=== PATIENT | female | born 1980 | race Caucasian/White ===

== ENCOUNTER 2024-01-10 11:14 | Outpatient (REF) | payer MEDICAID, OTHER, SELFPAY ==
[2024-01-10 12:23] LABS: Hematocrit 40.4 % (37.0-47.0); Hemoglobin 13.2 g/dl (12.0-16.0)
[2024-01-10 12:43] LABS: Alanine Aminotransferase 18 U/L (0-31); Albumin Level 3.9 g/dL (3.5-5.0); Alkaline Phosphatase 90 U/L (39-117); Anion Gap 15 (12-20); Aspartate Amino Transferase 16 U/L (5-31); Bilirubin Total 0.4 mg/dL (0.0-1.0); Blood Urea Nitrogen 10 mg/dL (9-16); Carbon Dioxide 25 mmol/L (22-29); Chloride 107 mmol/L (96-108); Cholesterol 214 mg/dL (<200); Estimated Glomerular Filt Rate > 60; Glucose Random 89 mg/dL (60-115); HDL Cholesterol 40 mg/dL (>40); LDL Cholesterol Calculated 146 mg/dL (<100); Potassium 4.6 mmol/L (3.3-5.1); Sodium 142 mmol/L (135-145); Total Protein 7.2 g/dL (6.5-8.0); Triglycerides 144 mg/dL (<150)
[2024-01-10 12:47] LABS: Estimated Average Glucose 103 mg/dL; Hemoglobin A1c % 5.2 % (<6.0)
== END 2024-01-10 11:15 | disposition home or self-care (01) ==
LOC: HO.HHCL 11:14
PROVIDERS: Visit Provider Nurse Practitioner Primary Care
DX: Z00.00 Encounter for general adult medical examination without abnormal findings (principal); I10 Essential (primary) hypertension
CPT/HCPCS: 36415; 80053; 80061; 83036; 85014; 85018

== ENCOUNTER → 2024-01-17 13:59 | Outpatient (REF) | payer MEDICAID, OTHER, SELFPAY ==
--- NOTE | ~2024-01-17 | MM_ITS ---
EXAMINATION: MM SCREENING DIGITAL BREAST TOMOSYNTHESIS, BILATERAL CLINICAL INFORMATION: Screening. Asymptomatic. COMPARISON: Mammography: There are no prior mammograms for comparison. TECHNIQUE: Digital breast tomosynthesis is performed in both the craniocaudal and mediolateral oblique views along with computer-aided detection (CAD). Synthesized 2D images are generated from the tomosynthesis. FINDINGS: There are scattered areas of fibroglandular density (ACR BI-RADS breast composition Category b). There are no significant masses, abnormal calcifications, or other abnormalities. MM/MM tomosynthesis screening BI IMPRESSION: No mammographic evidence of malignancy. ASSESSMENT: BI-RADS BI-RADS 1 - Negative RECOMMENDATION: Routine annual mammography screening. 1 year F/U This examination should not preclude the clinical evaluation of a suspicious palpable abnormality. This patient's information was entered into a reminder system with a target due date for their next mammogram.
--- NOTE | 2024-01-17 14:40 | CA_ITS ---
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 The calculated ejection fraction is 63% by biplane method. - No obvious valvular pathology seen on this study. Findings Left Ventricle Normal left ventricular cavity size. There is normal left ventricular wall thickness. The left ventricular systolic function is normal. The calculated ejection fraction is 63% by biplane method. There is no evidence of regional wall motion abnormalities. Diastolic function is normal for age. Right Ventricle Normal right ventricular cavity size and systolic function. Atria Both atria are normal in size. Aortic Valve There is a normal trileaflet aortic valve. There is no aortic valve stenosis. There is no aortic valve regurgitation. Mitral Valve The mitral valve appears normal. There is trace mitral valve regurgitation. There is no mitral valve stenosis. Pulmonic Valve The pulmonic valve is likely normal. Tricuspid Valve There is trace tricuspid valve regurgitation. There is no evidence of pulmonary hypertension. Great Vessels The asc aorta is normal in size. Venous The inferior vena cava is normal in size and collapses greater than 50% with inspiration. Pericardium/Pleural There is no evidence of pericardial effusion. Prior Study Comparison No prior study available for comparison. Recommendations, Care & Conclusions No obvious valvular pathology seen on this study. Measurements 2D Linear Measurements IVSd: 0.71 0.6-0.9/0.6-1.0 cm LVIDd: 4.85 3.9-5.3/4.2-5.9 cm LVIDd Index: 2.44 2.4-3.2/2.2-3.1 cm/m2 LVIDs: 3.29 2.0-3.6 cm LVPWd: 0.78 0.7-1.1 cm LA Diam: 3.40 2.7-3.8/3.0-4.0 cm LAIDs Index: 1.71 1.5-2.3 cm/m2 LV Mass: 146.01 67-162/88-224 g LV Mass Index: 73.37 43-95/49-115 g/m2 LVOT Diam: 2.10 3.0+(-)1.3 cm 2D Systolic Function EF 4C: 64.00 >55% EF 2C: 62.60 >55% EF BiP: 62.60 >55% Mitral Valve MV Pk E: 0.83 MV PK A: 0.50 MV Decel Time: 170.00 E/A: 1.70 E'Lateral: 11.90 E'Medial: 9.46 E/E' Med: 8.70 E/E' Lat: 6.90 PHT: 50.00 MVA PHT: 4.40 Decel [place]: 4.87 Aortic Valve AoV Pk Blake: 1.14 AoV Pk Grad: 5.00 BRI: 2.82 LVOT LVOT Pk Blake: 1.02 LVOT Mn Blake: 0.63 LVOT VTI: 0.20 LVOT Pk Grad: 4.00 LVOT Mn Grad: 2.00 LVOT Diam: 2.10 LVOT Area: 3.46 Diastolic Function MV Pk E: 0.83 MV Pk A: 0.50 E/A: 1.70 E'Medial: 9.46 E/E' Med: 8.70 E' Laterial: 11.90 E/E' Lat: 6.90 Right Ventricle TAPSE (mm): 27.20 TVS' Blake: 13.80 Tricuspid Valve TR Pk Blake: 1.92 TR Pk Grad: 15.00 RA Press: 3.00 RVSP: 18.00 Great Vessels Aorta Sinus of Valsalva: 3.00 2.0-3.5 cm Ao Asc: 2.90 2.1-3.4 cm Ao Arch: 2.20 Ao Desc: 1.70 Pulmonary Veins Pulm Vein S/D 1.20 Pulmonary Valve PV Pk Blake: 0.86 Peak PV Grad: 3.00 Updated in Other Vendor System with Status of Final Kevin Rice MD electronically signed on 01/18/2024 4:19:46 PM with status of Final
== END ==
LOC: HO.CARD 13:59
PROVIDERS: Visit Provider Nurse Practitioner Primary Care
DX: Z12.31 Encounter for screening mammogram for malignant neoplasm of breast (principal); I42.8 Other cardiomyopathies
CPT/HCPCS: 77063; 77067; 93306

== ENCOUNTER → 2024-01-17 14:40 | Outpatient (BNV) | payer SELFPAY | PROVIDERS: Visit Provider Internal Medicine | DX: I42.8 Other cardiomyopathies (principal); U07.1 COVID-19 | CPT/HCPCS: 93306 ==

== ENCOUNTER → 2024-01-17 15:15 | Outpatient (BNV) | payer SELFPAY | PROVIDERS: Visit Provider Radiology Diagnostic Radiology | DX: Z12.31 Encounter for screening mammogram for malignant neoplasm of breast (principal) | CPT/HCPCS: 77063; 77067 ==

== ENCOUNTER 2024-02-11 10:24 | Outpatient (REF) | payer MEDICAID, OTHER, SELFPAY ==
--- NOTE | ~2024-02-11 | US_ITS ---
EXAMINATION: US PELVIS CLINICAL INFORMATION: Pelvic pain, no prior imaging. COMPARISON: None available. TECHNIQUE: Ultrasound of the pelvis is performed using both transabdominal and transvaginal transducers along with Doppler. Transvaginal imaging is performed due to inadequate visualization transabdominally. FINDINGS: The uterus is retroverted and measures 8.2 x 3.9 x 5.3 cm. No discrete fibroids are appreciated. Nabothian cysts in the cervix. Small amount of free fluid. Right ovary measures 4.0 x 2.1 x 2.2 cm, volume 9.7 mL. Left ovary measures 1.7 x 1.0 x 1.1 cm, volume 1.4 mL. 1.7 x 1.2 x 1.8 cm left adnexal cyst located medial to the left ovary may represent an extra ovarian cyst versus exophytic ovarian cyst. Small amount of free fluid. US/US pelvic and transvaginal IMPRESSION: 1.8 cm left adnexal cyst located medial to the left ovary may represent an extra ovarian cyst versus exophytic ovarian cyst. Small amount of free fluid. Recommend follow up ultrasound in 6 to 8 weeks.
== END 2024-02-11 10:25 | disposition home or self-care (01) ==
LOC: HO.US 10:24
PROVIDERS: Visit Provider General Practice
DX: R10.2 Pelvic and perineal pain (principal)
CPT/HCPCS: 76830; 76856

== ENCOUNTER → 2024-05-10 13:29 | Outpatient (REF) | payer MEDICAID, OTHER, SELFPAY ==
--- NOTE | 2024-05-10 13:34 | CA_ITS ---
Transthoracic Echocardiogram Patient (Last, First, Middle): Jose Alberto Wilkerson, Gender: Female Date of : 1980 Age: 43 Procedure Date: 05/10/2024 Procedure Type: Transthoracic Echocardiogram Location: OP Height: 167.64 cm Weight: 89.81 kg BSA: 1.99 m2 Heart Rate: bpm BP: 104 / 70 mmHg Organizational Research Consultant: YAQUELIN Referring MD: Fermin Cali MD Symptoms: CARDIOMYOPATHY, UNSPECIFIED Study Quality: Adequate ECG Rhythm: Sinus Conclusions: - The left ventricular systolic function is normal. The calculated ejection fraction is 67% by biplane method. - No obvious valvular pathology seen on this study. Findings Left Ventricle Normal left ventricular cavity size. There is normal left ventricular wall thickness. The left ventricular systolic function is normal. The calculated ejection fraction is 67% by biplane method. There is no evidence of regional wall motion abnormalities. Diastolic function is normal for age. Right Ventricle Normal right ventricular cavity size and systolic function. Atria Both atria are normal in size. Aortic Valve There is a normal trileaflet aortic valve. There is no aortic valve stenosis. There is no aortic valve regurgitation. Mitral Valve The mitral valve appears normal. There is no mitral valve regurgitation. There is no mitral valve stenosis. Pulmonic Valve The pulmonic valve is likely normal. Tricuspid Valve There is mild tricuspid valve regurgitation. There is no evidence of pulmonary hypertension. Great Vessels The asc aorta and aortic arch are normal in size. Venous The inferior vena cava is normal in size and collapses greater than 50% with inspiration. Pericardium/Pleural There is no evidence of pericardial effusion. Prior Study Comparison No significant change compared to prior study dated: 01/17/2024. Recommendations, Care & Conclusions No obvious valvular pathology seen on this study. Measurements 2D Linear Measurements IVSd: 0.66 0.6-0.9/0.6-1.0 cm LVIDd: 4.79 3.9-5.3/4.2-5.9 cm LVIDd Index: 2.41 2.4-3.2/2.2-3.1 cm/m2 LVIDs: 3.07 2.0-3.6 cm LVPWd: 0.76 0.7-1.1 cm LA Diam: 3.40 2.7-3.8/3.0-4.0 cm LAIDs Index: 1.71 1.5-2.3 cm/m2 LV Mass: 135.49 67-162/88-224 g LV Mass Index: 68.08 43-95/49-115 g/m2 LVOT Diam: 2.00 3.0+(-)1.3 cm 2D Systolic Function EF 4C: 63.90 >55% EF 2C: 70.70 >55% EF BiP: 66.80 >55% Mitral Valve MV Pk E: 0.83 MV PK A: 0.58 MV Decel Time: 248.00 E/A: 1.40 E'Lateral: 12.60 E'Medial: 9.25 E/E' Med: 9.00 E/E' Lat: 6.60 PHT: 73.00 MVA PHT: 3.01 Decel [place]: 3.35 Aortic Valve AoV Pk Blake: 1.43 AoV Mn Blake: 1.06 AoV VTI: 0.34 AoV Pk Grad: 8.00 Aov Mn Grad: 5.00 BRI Cont.VTI: 1.87 LVOT LVOT Pk Blake: 0.90 LVOT Mn Blake: 0.62 LVOT VTI: 0.20 LVOT Pk Grad: 3.00 LVOT Mn Grad: 2.00 LVOT Diam: 2.00 LVOT Area: 3.14 Diastolic Function MV Pk E: 0.83 MV Pk A: 0.58 E/A: 1.40 E'Medial: 9.25 E/E' Med: 9.00 E' Laterial: 12.60 E/E' Lat: 6.60 Right Ventricle TAPSE (mm): 24.40 TVS' Blake: 14.90 Tricuspid Valve TR Pk Blake: 2.57 TR Pk Grad: 26.00 RA Press: 3.00 RVSP: 29.00 Great Vessels Aorta Sinus of Valsalva: 3.04 2.0-3.[address] [place]: 2.64 1.7-3.4 cm Ao Asc: 2.90 2.1-3.4 cm Ao Arch: 2.50 Updated in Other Vendor System with Status of Final Kevin Rice MD electronically signed on 05/10/2024 3:30:58 PM with status of Final
== END ==
LOC: HO.CARD 13:29
PROVIDERS: Visit Provider Internal Medicine
DX: I42.9 Cardiomyopathy, unspecified (principal)
CPT/HCPCS: 93306

== ENCOUNTER → 2024-05-10 13:34 | Outpatient (BNV) | payer SELFPAY | PROVIDERS: Visit Provider Internal Medicine | DX: I36.1 Nonrheumatic tricuspid (valve) insufficiency (principal) | CPT/HCPCS: 93306 ==

== ENCOUNTER → 2024-08-08 07:18 | Outpatient (REF) | payer MEDICAID, OTHER, SELFPAY | LOC: HO.SL 07:18 | PROVIDERS: PCP General Practice; Visit Provider General Practice | DX: G47.10 Hypersomnia, unspecified (principal); R06.83 Snoring; R40.0 Somnolence | CPT/HCPCS: 95806 ==

== ENCOUNTER → 2024-08-08 19:00 | Outpatient (BNV) | payer MEDICAID, SELFPAY | PROVIDERS: PCP General Practice; Visit Provider Internal Medicine | DX: R40.0 Somnolence (principal) | CPT/HCPCS: 95806 ==

== ENCOUNTER 2025-02-02 10:03 | Outpatient (REF) | payer OTHER, SELFPAY ==
--- OUTSIDE RECORDS SUMMARY | 2025-02-02 09:00 | XMS_ITS | Encounter Summary ---
Author Organization [facility] Address [address] [place] [address] Care Team Providers Care Senior Qa Tester Name Role Phone Twyla Ayers MD Primary Care Provider [phone] Reason for Referral * Imaging (Routine) - Pending Review Specialty Diagnoses / Procedures Referred By Contac t Referred To Contact Cardiology Diagnoses Pain and swelling of lower extremity, right Procedures Vascular US lower extremity venous duplex right Twyla Ayers MD [address] [place] [address] Phone: tel: fax: Referral ID Status Reason Start Date Expiration Date Visits Requested Visits Authorized [id number] Pending Review Perform Procedure 02/02/2025 02/02/2026 1 1 Reason for Visit * Reason Comments Gynecologic Exam Encounter Details Date Type Department Care Team (Latest Contact Info) Description 02/02/2025 9:00 AM EDT Procedure Visit [facility] [address], [place] [id number] Twyla Ayers MD [address], [place] [id number] Screening for cervical cancer (Primary Dx); Cardiomyopathy, unspecified type (CMS/HCC); Dietary counseling; Exercise counseling; Class 2 severe obesity with serious comorbidity and body mass index (BMI) of 36.0 to 36.9 in adult, unspecified obesity type (CMS/HCC); Vaginal discharge; Pain and swelling of lower extremity, right Social History Tobacco Use Types Packs/Day Years Used Date Smoking Tobacco: Never Passive Smoke Exposure: Never Smokeless Tobacco: Never Tobacco Cessation:Counseling Given: Not Answered Alcohol Use Standard Drinks/Week Comments Never 0 (1 standard drink = 0.6 oz pur e alcohol) Depression Answer Date Recorded Patient Health Questionnaire-9 Score 11 02/02/2025 Patient Health Questionnaire-9 Score 11 02/02/2025 Last PHQ-9: Questionnaire Data Not on file 0 02/02/2025 Housing Stability Answer Date Recorded What is your housing situation today? I have surekha baker 02/02/[address] you li ve. Do you have problems with any of the following? Inadequate heat 02/02/2025 Food Insecurity Answer Date Recorded Within the past 12 months, y ou worried that your food would run out before you got money to buy more: Never True 2024 Within the past 12 months,th e food you bought just didn't last and you didn't have enough money to get more: Sometimes True 02/02/2025 Transportation Answer Date Recorded In the past 12 months, has l ack of transportation kept you from medical appts, meetings, work or from getting things needed for daily living? No 02/02/2025 Utilities Answer Date Recorded In the past 12 months, has t he electric, gas, oil or water company threatened to shut off services in your home? No 02/02/2025 Depression Answer Date Recorded Patient Health Questionnaire-2 Score 4 02/02/2025 Internet Access Answer Date Recorded Internet Access Q1 Yes 02/02/2025 Internet Access Q2 Not on file 02/02/2025 Comments Unknown Sex and Gender Information Value Date Recorded Sex Assigned at Female 09/20/2023 11:13 AM EST Legal Sex Female 11:06 AM EST Gender Identity Female 09/20/2023 11:13 AM EST Sexual Orientation Straight 09/20/2023 11 :13 AM EST documented as of this encounter Last Filed Vital Signs Vital Sign Reading Time Taken Comments Blood Pressure 124/64 02/02/2025 9:26 AM EDT Pulse 70 02/02/2025 9:26 AM EDT Temperature 36.6 C (97.8 F) 02/02/2025 9:26 AM EDT Respiratory Rate 24 02/02/2025 9:26 AM EDT Oxygen Saturation - - Inhaled Oxygen Concentration - - Weight 93.5 kg (206 lb 2 oz) 02/02/2025 9:26 AM EDT Height 160 cm (5' 3 ) 02/02/2025 9:26 AM EDT Body Mass Index 36.51 02/02/2025 9:26 AM EDT documented in this encounter Functional Status * Over the past 2 weeks, how often have you been bothered by any of the following problems? Question Answer Date of Assessment Author Patient Health Questionnaire-2 Score 4 01/16 9:28 AM EDT [place] * Little interest or pleasure in doing things Answer Date of Assessment Author Nearly every day 02/02/2025 9:28 AM EDT [place] * Feeling down, depressed, or hopeless Answer Date of Assessment Author Several days 02/02/2025 9:28 AM EDT [place] * Trouble falling or staying asleep, or sleeping too much Answer Date of Assessment Author Not at all 02/02/2025 9:28 AM EDT [place] * Feeling tired or having little energy Answer Date of Assessment Author Nearly every day 02/02/2025 9:28 AM EDT [place] * Poor appetite or overeating Answer Date of Assessment Author Nearly every day 02/02/2025 9:28 AM EDT [place] * Feeling bad about yourself - or that you are a failure or have let yourself or your family down Answer Date of Assessment Author Not at all 02/02/2025 9:28 AM EDT [place] * Trouble concentrating on things, such as reading the newspaper or watching television Answer Date of Assessment Author Several days 02/02/2025 9:28 AM EDT [place] * Moving or speaking so slowly that other people could have noticed? Or the opposite - being so fidgety or restless that you have been moving around a lot more than usual. Answer Date of Assessment Author Not at all 02/02/2025 9:28 AM SLADET [place] * Thoughts that you would be better off or hurting yourself in some way Answer Date of Assessment Author Not at all 02/02/2025 9:28 AM EDT [place] * Patient Health Questionnaire-9 Score Answer Date of Assessment Author 11 02/02/2025 9:28 AM EDT [place] * How difficult have these problems made it for you to do your work, take care of things at home, or get along with other people? Answer Date of Assessment Author Not difficult at all 02/02/2025 9:28 AM EDT [place] * Over the last 2 weeks, how often have you been bothered by any of the following problems? Question Answer Date of Assessment Author Feeling nervous, anxious, or on edge 0 01/16 9:29 AM EDT [place] Not being able to stop or co ntrol worrying 0 02/02/2025 9:29 AM EDT [place] Worrying too much about diff erent things 0 02/02/2025 9:29 AM EDT [place] Trouble relaxing 0 02/02/2025 9:29 AM EDT Brad [place] Being so restless that it is hard to sit still 0 02/02/2025 9:29 AM EDT [place] Becoming easily annoyed or irritable 0 01/16 9:29 AM EDT [place] Feeling afraid as if somethi ng awful might happen 0 02/02/2025 9:29 AM EDT [place] MARTI-7 Total Score 0 02/02/2025 9:29 AM Brad [place] documented as of this encounter Plan of Treatment Scheduled Orders Name Type Priority Associated Diagnoses Order Schedule Bacterial Vaginosis Microbiology Routine Vaginal discharge Ordered: 02/02/2025 ThinPrep Imaging Pap and HPV mRNA E6/E7 with Reflex to HPV 16,18/45 Pathology and Cytology Routine Screening for cervical cancer Expected: 02/02/2025 (Approximate), Expires: 02/02/2026 TSH W/Reflex to FT4 Lab Routine Class 2 severe obesity with serious comorbidity and body mass index (BMI) of 36.0 to 36.9 in adult, unspecified obesity type (CMS/HCC) Expected: 02/02/2025 (Approximate), Expires: 02/02/2026 Comprehensive Metabolic Panel Lab Routine Class 2 severe obesity with serious comorbidity and body mass index (BMI) of 36.0 to 36.9 in adult, unspecified obesity type (CMS/HCC) Expected: 02/02/2025 (Approximate), Expires: 02/02/2026 CBC auto differential Lab Routine Class 2 severe obesity with serious comorbidity and body mass index (BMI) of 36.0 to 36.9 in adult, unspecified obesity type (CMS/HCC) Expected: 02/02/2025 (Approximate), Expires: 02/02/2026 HIV-1/2 Antigen and Antibodies, Fourth Generation, with Reflexes Lab Routine Screening for cervical cancer Expected: 02/02/2025 (Approximate), Expires: 02/02/2026 Hepatitis C Antibody with Reflex to HCV, RNA, Quantitative, Real-Time PCR Lab Routine Screening for cervical cancer Expected: 02/02/2025, Expires: 02/02/2026 RPR (Monitor) with Reflex to Titer Lab Routine Screening for cervical cancer Expected: 02/02/2025, Expires: 02/02/2026 documented as of this encounter Visit Diagnoses Diagnosis Screening for cervical cancer- Primary Screening for malignant neoplasm of the cervix Cardiomyopathy, unspecified type (CMS/HCC) Dietary counseling Dietary surveillance and counseling Exercise counseling Class 2 severe obesity with serious comorbidity and body mass index (BMI) of 36.0 to 36.9 in adult, unspecified obesity type (CMS/HCC) Vaginal discharge Leukorrhea, not specified as infective Pain and swelling of lower extremity, right documented in this encounter Additional Health Concerns Assessment Noted Time PHQ-9 Depression Total Score: 11 025 9:28 AM EDT documented as of this encounter Care Teams Senior Qa Tester Relationship Specialty Start Date End Date Twyla Ayers MD [address] [place] [id number] PCP - General Family Medicine 01/21/24 documented as of this encounter
--- OUTSIDE RECORDS SUMMARY | 2025-02-02 10:23 | XMS_ITS | Clinical Summary ---
Author Organization [facility] Address [address] [place] [address] Care Team Providers Care Rotor Coil Taper Name Role Phone Maine Saavedra Primary Care Provider [phone] Allergies No known active allergies Medications blood pressure test kit-large kit USE TO CHECK BLOOD PRESSURE TWICE DAILY DIRECTED 01/03/2024 Active Active Problems Problem Noted Date Diagnosed Date Cardiomyopathy 04/05/2024 Essential hypertension 04/05/2024 Exertional dyspnea 04/05/2024 Family History Medical History Relation Name Comments Diabetes Mother Relation Name Status Comments Mother Social History Tobacco Use Types Packs/Day Years Used Date Smoking Tobacco: Never Passive Smoke Exposure: Never Smokeless Tobacco: Never Alcohol Use Standard Drinks/Week Comments Not Asked 0 (1 standard drink = 0.6 oz pur e alcohol) occ Comments Unknown Sex and Gender Information Value Date Recorded Sex Assigned at Female 04/05/2024 9:00 AM EDT Legal Sex Female 1:51 PM EDT Gender Identity Not on file Sexual Orientation Not on file Last Filed Vital Signs Vital Sign Reading Time Taken Comments Blood Pressure 102/58 04/05/2024 9:18 AM EDT Pulse 64 04/05/2024 9:16 AM EDT Temperature - - Respiratory Rate - - Oxygen Saturation 99% 04/05/2024 9:16 AM EDT Inhaled Oxygen Concentration - - Weight 89.8 kg (198 lb) 04/05/2024 9:16 AM EDT Height - - Body Mass Index - - Plan of Treatment Health Maintenance Due Date Last Done Comments Cervical Cancer Screening 1980 Cologuard 1980 Colonoscopy 1980 HIV Screening 1980 HPV and Pap Smear 1980 Hepatitis C Screening 1980 Pap Smear 1980 Sigmoidoscopy 1980 Varicella Vaccines (1 of 2 - 13+ 2-dose series) 12/22/1992 Hepatitis B Vaccines (1 of 3 - 19+ 3-dose series) 12/22/1998 DTaP,Tdap,and Td Vaccines (1 - Tdap) 12/22/2001 Mammogram 2019 COVID-19 Vaccine (1 - 2023-2 5 season) 2024 Alcohol/Substance Use Screening 07/19/2024 Depression Screening and Follow-Up 07/19/2024 Social Drivers of Health Krissy ual Screening 07/19/2024 Basic Metabolic Panel 01/09/2025 01/10/2024 Colon Cancer Screening 01/09/2025 FOBT / Fit Test 01/09/2025 01/10/2024 Influenza Vaccine (#1) 2025 RSV Vaccine (60+ years old a nd patients) (1 - 1-dose 75+ series) 12/22/2054 Pneumococcal Vaccine: Pediat sirisha (0-5 Years) and At-Risk Patients (6-50 Years) Aged Out No longer eligible b ased on patient's age to complete this topic Insurance [facility]/FREE CARE Care Teams Rotor Coil Taper Relationship Specialty Start Date End Date Maine Saavedra [address] [place] [address] PCP - General 01/10/24
[2025-02-02 11:31] LABS: MANUAL DIFF FLAG NO
[2025-02-02 11:44] LABS: Hematocrit 38.2 % (37.0-47.0); Hemoglobin 12.8 g/dl (12.0-16.0); Imm Gran Abs Auto 0.01 X10*3/uL (0.00-0.03); Imm Gran Pct Auto 0.2 % (0.0-0.4); Lymphocytes Absolute Auto 1.7 X10*3/uL (1.2-4.9); Mean Corpuscular HGB Conc 33.5 g/dl (31.0-35.0); Mean Corpuscular Hemoglobin 29.4 pg (27.0-33.0); Mean Corpuscular Volume 87.6 fL (80.0-98.0); NRBC Abs Auto 0.000 X10*3/uL (0.0-0.012); NRBC Pct Auto 0.0 /100WBC (0.0-0.2); Platelet Count 324 X10*3/uL (160-400); Red Blood Count 4.36 X10*6/uL (4.20-5.50); White Blood Count 6.0 X10*3/uL (4.8-10.8)
[2025-02-02 12:00] LABS: Alanine Aminotransferase 26 U/L (0-31); Albumin Level 4.1 g/dL (3.5-5.0); Alkaline Phosphatase 95 U/L (39-117); Anion Gap 11 (12-20); Aspartate Amino Transferase 18 U/L (5-31); Blood Urea Nitrogen 12 mg/dL (9-16); Calcium 8.7 mg/dL (8.4-10.2); Carbon Dioxide 22 mmol/L (22-29); Chloride 110 mmol/L (96-108); Estimated Glomerular Filt Rate > 60; Potassium 3.9 mmol/L (3.3-5.1); Sodium 139 mmol/L (135-145); Total Protein 6.9 g/dL (6.5-8.0)
[2025-02-02 12:09] LABS: HIV Num 1 0.05 S/CO (0.00-0.99); ~HepC Num1 0.13 S/CO (0.00-0.79); ~Hepatitis C Antibody Nonreactive (Nonreactive)
[2025-02-02 20:45] LABS: Bacterial Vaginosis PCR NEGATIVE (Negative); Candida Group PCR NOT DETECTED (Not Detect); Candida glab krusei PCR NOT DETECTED (Not Detect); Trichomonas vaginalis PCR NOT DETECTED (Not Detect)
[2025-02-03 09:19] LABS: Follicle Stimulating Hormone 2.4 mIU/mL
== END 2025-02-02 10:04 | disposition home or self-care (01) ==
LOC: HO.HHCL 10:03
PROVIDERS: PCP General Practice; Visit Provider General Practice
DX: Z12.4 Encounter for screening for malignant neoplasm of cervix (principal); N92.6 Irregular menstruation, unspecified; N89.8 Other specified noninflammatory disorders of vagina; E66.01 Morbid (severe) obesity due to excess calories; E66.812 Obesity, class 2; Z68.36 Body mass index [BMI] 36.0-36.9, adult
CPT/HCPCS: 36415; 80053; 81515; 83001; 83002; 84443; 85025; 86592; 86803; 87389; 87626; 88175

== ENCOUNTER 2025-02-20 15:50 | Outpatient (REF) | payer OTHER, MEDICAID, SELFPAY ==
--- OUTSIDE RECORDS SUMMARY | 2025-02-20 16:07 | XMS_ITS | Clinical Summary ---
Author Organization [facility] Address [address] [place] [address] Care Team Providers Care Recycling Sorter Name Role Phone Maine Saavedra Primary Care Provider [phone] Allergies No known active allergies Medications blood [...] patient's age to complete this topic Insurance [facility]/FREE CARE Care Teams Recycling Sorter Relationship Specialty Start Date End Date Maine Saavedra [address] [place] [address] PCP - General 01/10/24
== END 2025-02-20 15:51 | disposition home or self-care (01) ==
LOC: HO.MAMMO 15:50
PROVIDERS: PCP General Practice; Visit Provider General Practice
DX: Z12.31 Encounter for screening mammogram for malignant neoplasm of breast (principal)
CPT/HCPCS: 77063; 77067

== ENCOUNTER → 2025-02-20 16:15 | Outpatient (BNV) | payer OTHER, SELFPAY | PROVIDERS: PCP General Practice; Visit Provider Internal Medicine | DX: Z12.31 Encounter for screening mammogram for malignant neoplasm of breast (principal) | CPT/HCPCS: 77063; 77067 ==

== ENCOUNTER 2025-04-16 08:04 | Outpatient (REF) | payer OTHER, SELFPAY ==
--- NOTE | ~2025-04-16 | US_ITS ---
EXAMINATION: US LOWER EXTREMITY VENOUS (REFLUX EXAM), RIGHT CLINICAL INFORMATION: Pain and swelling of right lower extremity. COMPARISON: None. TECHNIQUE: Color flow triplex imaging and compression Doppler was performed to evaluate both the deep and the superficial systems bilaterally. To evaluate the superficial system, the examination was performed in the upright position. Color-flow Doppler ultrasound and compression ultrasound were utilized. In addition, maneuvers were utilized to demonstrate reflux. FINDINGS: 1. DEEP VENOUS ULTRASOUND OF THE RIGHT LOWER EXTREMITY: Common Femoral Vein: Compressible, normal respiratory variation and augmented flow. Femoral Vein: Compressible, normal color flow and augmentation. Popliteal Vein: Compressible, normal augmentation. Deep Reflux: There is no evidence of reflux in the deep system in either the common femoral vein, superficial femoral or the popliteal vein. There is no evidence of a Kinsey's cyst. 2. SUPERFICIAL ULTRASOUND WITH DOPPLER OF RIGHT LOWER EXTREMITY: GREAT SAPHENOUS VEIN: Saphenofemoral Junction: 0.7 cm; Reflux: 0 ms Proximal Thigh: 0.7 cm; Reflux: 0 ms Mid Thigh: 0.4 cm; Reflux: 0 ms Distal Thigh: 0.3 cm; Reflux: 0 ms At Knee: 0.4 cm; Reflux: 0 ms Proximal Calf: 0.2 cm; Reflux: 1512 ms Mid Calf: 0.2 cm; Reflux: 0 ms Distal Calf: 0.2 cm; Reflux: 0 ms DUPLICATED MEDIAL GREAT SAPHENOUS VEIN: None imaged. DUPLICATED LATERAL GREAT SAPHENOUS VEIN: SFJ: 0.4 cm; no reflux. Mid thigh: 0.1 cm; no reflux. SMALL SAPHENOUS VEIN: Saphenopopliteal Junction: 0.3 cm; Reflux: 0 ms Proximal: 0.3 cm; Reflux: 0 ms Distal: 0.2 cm; Reflux: 0 ms VEIN OF GIACOMINI: Size: 0.4 Reflux: None. PERFORATORS: SSV mid: 0.2 cm; no reflux. Proximal calf: 0.2 cm; no reflux. VARICOSITIES: None imaged. US/US venous duplex LE RT IMPRESSION: 1. No evidence of right lower extremity deep venous thrombosis, or significant reflux. 2. No evidence of superficial thrombosis or significant varicosity of the right lower extremity. 3. There is 1512 ms of reflux in the right greater saphenous vein in the proximal calf. No additional superficial reflux seen. Electronically signed by: Deuce Brown MD 04/16/2025 09:30 AM EDT RP
== END 2025-04-16 08:05 | disposition home or self-care (01) ==
LOC: HO.US 08:04
PROVIDERS: PCP General Practice; Visit Provider General Practice
DX: M79.604 Pain in right leg (principal); R60.0 Localized edema
CPT/HCPCS: 93971

== ENCOUNTER → 2025-04-16 08:26 | Outpatient (BNV) | payer OTHER, SELFPAY | PROVIDERS: PCP General Practice; Visit Provider Radiology Diagnostic Radiology | DX: I87.2 Venous insufficiency (chronic) (peripheral) (principal) | CPT/HCPCS: 93971 ==

== ENCOUNTER 2025-05-22 14:04 | Outpatient (REF) | payer OTHER, SELFPAY ==
--- NOTE | ~2025-05-22 | XR_ITS ---
EXAMINATION: XR SHOULDER, RIGHT CLINICAL INFORMATION: chornic right shoulder pain COMPARISON: None available. TECHNIQUE: AP external rotation, Grashey, scapular Y, and axillary views of the right shoulder. FINDINGS: Mild superior positioning of the distal clavicle with respect to the acromion. No visible acute fracture or dislocation. Glenohumeral and acromioclavicular joint spaces are maintained. No abnormal soft tissue calcification. No suspicious bony lesions. XR/XR shoulder RT min 2V IMPRESSION: 1. Mild superior positioning of the distal clavicle with respect to the acromion, could be related to positioning/technique versus sprain injury. Clinically correlate. 2. No acute fracture or dislocation is otherwise seen. Electronically signed by: Aston Fitzgerald MD 05/22/2025 03:14 PM SHERINE ANDRADE
--- OUTSIDE RECORDS SUMMARY | 2025-05-22 17:06 | XMS_ITS | Clinical Summary ---
Author Organization [facility] Address [address] [place] [address] Care Team Providers Care Fire Control Mechanic Name Role Phone Maine Saavedra Primary Care Provider [phone] Allergies No known active allergies Medications blood [...] Vaccines (1 - Tdap) 12/22/2001 Mammogram 2019 Alcohol/Substance Use Screening 07/19/2024 Depression Screening and Follow-Up 07/19/2024 Social Drivers of Health Krissy ual Screening 07/19/2024 Basic Metabolic Panel 01/09/2025 01/10/2024 Colon Cancer Screening 01/09/2025 FOBT / Fit Test 01/09/2025 01/10/2024 COVID-19 Vaccine (1 - 2024-2 6 season) 2025 Influenza Vaccine (#1) 2025 Pneumococcal Vaccine: Pediat sirisha (0-5 Years) and At-Risk Patients (6-50 Years) Aged Out No longer eligible b ased on patient's age to complete this topic Insurance [facility]/FREE CARE Care Teams Fire Control Mechanic Relationship Specialty Start Date End Date Maine Saavedra [address] [place] [id number] PCP - General 01/10/24
== END 2025-05-22 14:05 | disposition home or self-care (01) ==
LOC: HO.HHCX 14:04
PROVIDERS: Visit Provider Family Medicine
DX: M25.511 Pain in right shoulder (principal); G89.29 Other chronic pain
CPT/HCPCS: 73030

== ENCOUNTER → 2025-05-22 14:04 | Outpatient (BNV) | payer OTHER, SELFPAY | PROVIDERS: Visit Provider Radiology Diagnostic Ultrasound | DX: M25.511 Pain in right shoulder (principal) | CPT/HCPCS: 73030 ==